=== PATIENT | female | born 2000 | race Caucasian/White ===

== ENCOUNTER 2024-01-17 14:42 | Emergency (ER) | payer BC ==
[~2024-01-17] VITALS: Ht 165.1 cm; Wt 60.8 kg
[2024-01-17] MEDS ORDERED: MORPHINE SULFATE INJ 2 MG/ML DISP.SYRIN ONE (15:20)
[2024-01-17] MEDS: MORPHINE SULFATE INJ 2 MG/ML DISP.SYRIN IM ONE (15:28)
[2024-01-17] MEDS ORDERED: CYCL5TAB PO (16:57)
[2024-01-17] MEDS ORDERED: IBUP-1955 PO (16:57)
[2024-01-17] MEDS ORDERED: ACET-2605 PO (16:57)
[2024-01-17] MEDS ORDERED: LIDOCAINE 5% (PATCH) 1 EA PATCH TP ONE (17:28)
[2024-01-17] MEDS ORDERED: HYDROCODONE/APAP 5/325MG TABLET ONE (17:29)
[2024-01-17] MEDS: HYDROCODONE/APAP 5/325MG TABLET PO ONE (17:30)
[2024-01-17] MEDS: LIDOCAINE 5% (PATCH) 1 EA PATCH TP ONE (17:31)
[2024-01-17 17:41] VITALS: BP 97/65; TEMP 98.9; O2SAT 98
== END 2024-01-17 17:40 | disposition home or self-care (01) ==
LOC: ER 14:45
DX: M54.2 Cervicalgia (principal); M54.6 Pain in thoracic spine; M25.512 Pain in left shoulder; Z88.0 Allergy status to penicillin; V43.52XA Car driver injured in collision with other type car in traffic accident, initial encounter; Y93.89 Activity, other specified; Y92.488 Other paved roadways as the place of occurrence of the external cause; Y99.8 Other external cause status
CPT/HCPCS: 99285; 72125; 96372; 73030; 72128; J2270